=== PATIENT | female | born 1950 | race African-American/Black ===

== ENCOUNTER 2018-03-27 07:23 | Emergency (ER) | payer MEDICAID ==
[~2018-03-27] VITALS: Ht 160 cm; Wt 70.0 kg
[2018-03-27] MEDS ORDERED: IBUPROFEN 400MG TABLET PO ONE (09:15)
[2018-03-27] MEDS ORDERED: DIAZEPAM 2 MG TABLET PO ONE (09:15)
[2018-03-27] MEDS ORDERED: HYDROCODONE/ACETAMINOPHEN 5/325MG TABLET PO ONE (11:45)
[2018-03-27 13:24] VITALS: BP 120/59
== END 2018-03-27 13:26 | disposition home or self-care (01) ==
LOC: ER 08:42
DX: M54.2 Cervicalgia (principal); F17.210 Nicotine dependence, cigarettes, uncomplicated; Z88.0 Allergy status to penicillin
CPT/HCPCS: 72125; 99284